=== PATIENT | male | born 1980 | race Caucasian/White ===

== ENCOUNTER 2018-05-25 14:23 | Emergency (ER) | payer OTHER ==
[~2018-05-25] VITALS: Ht 167.6 cm; Wt 70.3 kg
[2018-05-25] MEDS ORDERED: NORCO 5-325 TA1 EACH PO (16:40)
[2018-05-25] MEDS ORDERED: IBUPROFEN 600600 M1 PO (16:40)
[2018-05-25] MEDS ORDERED: KEFLEX500 M1 PO (16:40)
[2018-05-25 17:11] VITALS: BP 112/58
== END 2018-05-25 17:12 | disposition home or self-care (01) ==
LOC: M.ERS 14:23
DX: S62.521B Displaced fracture of distal phalanx of right thumb, initial encounter for open fracture (principal); W31.89XA Contact with other specified machinery, initial encounter; Y93.89 Activity, other specified; Y92.89 Other specified places as the place of occurrence of the external cause; Y99.8 Other external cause status